=== PATIENT | female | born 1975 | race Caucasian/White ===

== ENCOUNTER 2019-04-16 00:22 | Emergency (ER) | payer BC, OTHER ==
[~2019-04-16] VITALS: Ht 188 cm; Wt 77.0 kg
[2019-04-16 00:24] VITALS: BP 128/71
--- NOTE | 2019-04-16 00:33 | NUR ---
PATIENT STATES "SOME ELIZABETH TOOK OUT MY LEGS WHILE I WAS SKATING AROUND 9PM AND I FELL AND BRACED MYSELF WITH BOTH MY WRISTS". [facility] INTACT, HAND ROLLER INTACT BUT PAINFUL WHEN SQUEEZING. DENIES LOC, DENIES ETOH USE. NO MEDICAL HX. CALL LIGHT IN REACH, A&OX4, NAD.
[2019-04-16] MEDS ORDERED: KETOROLAC 30 MG/1 ML IVPush ONE (01:00)
[2019-04-16] MEDS ORDERED: ACETAMINOPHEN 500 MG TABLET PO ONE (01:00)
[2019-04-16] MEDS ORDERED: KETOROLAC 30 MG/1 ML ONE (01:09)
[2019-04-16] MEDS ORDERED: ACETAMINOPHEN 500 MG TABLET ONE (01:09)
[2019-04-16] MEDS ORDERED: KETOROLAC 30 MG/1 ML IM ONE (02:00)
== END 2019-04-16 02:15 | disposition home or self-care (01) ==
LOC: ED 02:09
DX: G89.11 Acute pain due to trauma (principal); M25.531 Pain in right wrist; M25.532 Pain in left wrist; F17.200 Nicotine dependence, unspecified, uncomplicated; X58.XXXA Exposure to other specified factors, initial encounter; Y93.89 Activity, other specified; Y92.89 Other specified places as the place of occurrence of the external cause; Y99.8 Other external cause status
CPT/HCPCS: 29125; 73110; 96372; 99283; J1885